=== PATIENT | female | born 1995 | race Hispanic/Latino ===

== ENCOUNTER 2021-02-15 18:05 | Emergency (ER) | payer SELFPAY ==
[2021-02-15] MEDS ORDERED: KETOROLAC TROMETHAMINE 15MG/ML ONE (18:23)
[2021-02-15 19:20] LABS: BASOPHILS % (AUTO) 0.4 % (0.0-5.0); EOSINOPHILS % (AUTO) 0.2 % (0.0-8.0); HEMATOCRIT 42.5 % (36-48); LYMPHOCYTES % (AUTO) 21.3 % (21.0-51.0); MEAN CORPUSCULAR HEMOGLOBIN 29.6 pg (27.0-33.0); MEAN CORPUSCULAR HGB CONC 33.2 g/dL (32.0-36.0); MEAN CORPUSCULAR VOLUME 89.3 fL (79-99); NEUTROPHILS % (AUTO) 71.7 % (40.0-77.0); PLATELET COUNT (AUTO) 280 K/uL (130-400); RED BLOOD CELL COUNT(AUTO) 4.76 MIL/uL (4.00-5.50); RED CELL DISTRIBUTION WIDTH 12.2 % (11.0-15.5); WHITE BLOOD COUNT (AUTO) 11.1 K/uL (4.8-10.8)
[2021-02-15 19:35] LABS: CREATININE 0.8 mg/dL (0.5-1.5); POTASSIUM 3.6 mmol/L (3.5-5.1)
[2021-02-15 19:41] LABS: ALBUMIN 3.4 g/dL (3.5-5.0); BILIRUBIN,TOTAL 0.3 mg/dL (0.2-1.0); CRP QUANTITATIVE 38.9 mg/L (0.00-9.0); TOTAL PROTEIN, SERUM 8.8 g/dL (6.0-8.3)
[2021-02-15 20:33] LABS: ERYTHROCYTE SEDIMENTATION RATE 37 MM/HR (0-20)
[2021-02-15] MEDS ORDERED: METHYLPREDNISOLONE SOD SUCC 125MG/2ML VIAL ONE (20:42)
== END 2021-02-15 21:49 | disposition home or self-care (01) ==
LOC: EDH 18:05
DX: M79.18 Myalgia, other site (principal); E66.01 Morbid (severe) obesity due to excess calories; M79.641 Pain in right hand; M79.642 Pain in left hand; M25.531 Pain in right wrist; M25.562 Pain in left knee; Z68.42 Body mass index [BMI] 45.0-49.9, adult
CPT/HCPCS: 36415; 73110 ×2; 73562; 80053; 85025; 85651; 86140; 96372 ×2; 99284; J1885; J2930

== ENCOUNTER 2021-10-01 22:02 | Emergency (ER) | payer OTHER ==
[~2021-10-01] VITALS: Ht 157.5 cm; Wt 140.6 kg
[2021-10-01 23:42] LABS: APPEARANCE,URINE Clear (CLEAR); BILIRUBIN,URINE Negative (NEGATIVE); COLOR,URINE Yellow (YELLOW); GLUCOSE, URINE (UA) >=1000 mg/dL (NEGATIVE); KETONES,URINE Negative (NEGATIVE); LEUKOCYTE ESTERASE ,URINE Trace (NEGATIVE); NITRATE,URINE Negative (NEGATIVE); OCCULT BLOOD,URINE Large (NEGATIVE); PROTEIN,URINE Negative (NEGATIVE)
[2021-10-01 23:43] LABS: HCG,QUAL RESULT NEGATIVE (NEGATIVE)
[2021-10-01 23:51] LABS: BACTERIA,URINE Few /HPF (None Seen); WBC,URINE 0-1 /HPF (0-1)
[2021-10-02 01:24] LABS: BASOPHILS % (AUTO) 0.5 % (0.0-5.0); EOSINOPHILS % (AUTO) 1.2 % (0.0-8.0); HEMATOCRIT 43.4 % (36-48); MEAN CORPUSCULAR HEMOGLOBIN 30.5 pg (27.0-33.0); MEAN CORPUSCULAR HGB CONC 33.9 g/dL (32.0-36.0); MONOCYTES % (AUTO) 6.6 % (3.0-13.0); NEUTROPHILS % (AUTO) 57.5 % (40.0-77.0); PLATELET COUNT (AUTO) 202 K/uL (130-400); RED BLOOD CELL COUNT(AUTO) 4.82 MIL/uL (4.00-5.50); RED CELL DISTRIBUTION WIDTH 11.9 % (11.0-15.5); WHITE BLOOD COUNT (AUTO) 9.2 K/uL (4.8-10.8)
[2021-10-02 02:02] LABS: CREATININE 0.7 mg/dL (0.5-1.5); POTASSIUM 4.6 mmol/L (3.5-5.1)
[2021-10-02 02:09] LABS: ALBUMIN 3.3 g/dL (3.5-5.0); BILIRUBIN,TOTAL 0.4 mg/dL (0.2-1.0); TOTAL PROTEIN, SERUM 7.8 g/dL (6.0-8.3)
[2021-10-02 02:20] VITALS: BP 139/84
[2021-10-02] MEDS ORDERED: CIPR-278 PO (03:22)
[2021-10-02] MEDS ORDERED: IBUP-2070 PO (03:22)
== END 2021-10-02 03:59 | disposition home or self-care (01) ==
LOC: EDH 22:02
DX: M54.50 Low back pain, unspecified (principal); R31.9 Hematuria, unspecified; R73.9 Hyperglycemia, unspecified; K76.0 Fatty (change of) liver, not elsewhere classified; R03.0 Elevated blood-pressure reading, without diagnosis of hypertension
CPT/HCPCS: 36415; 74176; 80053; 81001; 81025; 85025

== ENCOUNTER 2022-05-10 22:26 | Emergency (ER) | payer OTHER ==
[~2022-05-10] VITALS: Ht 157.5 cm; Wt 141.5 kg
[~2022-05-10 22:26] MED LIST: CIPR-278 PO; IBUP-2070 PO
[2022-05-10 23:40] VITALS: BP 128/84
[2022-05-11] MEDS ORDERED: DIPH50 PO (00:23)
== END 2022-05-11 00:51 | disposition home or self-care (01) ==
LOC: EDH 22:26
DX: T78.3XXA Angioneurotic edema, initial encounter (principal); I10 Essential (primary) hypertension; Z79.899 Other long term (current) drug therapy
CPT/HCPCS: 99282

== ENCOUNTER 2023-05-03 20:40 | Emergency (ER) | payer BC, OTHER ==
[~2023-05-03] VITALS: Ht 157.5 cm; Wt 136.8 kg
[~2023-05-03 20:40] MED LIST changes: +DIPH50 PO
[2023-05-03 20:43] VITALS: BP 121/84
[2023-05-03 21:14] LABS: APPEARANCE,URINE CLOUDY (CLEAR); BILIRUBIN,URINE NEGATIVE (NEGATIVE); COLOR,URINE LIGHT-YELLOW (YELLOW); GLUCOSE, URINE (UA) NEGATIVE (NEGATIVE); KETONES,URINE NEGATIVE (NEGATIVE); LEUKOCYTE ESTERASE ,URINE 500 Leu/uL (NEGATIVE); NITRATE,URINE NEGATIVE (NEGATIVE); OCCULT BLOOD,URINE SMALL (NEGATIVE); PH,URINE 6.5 (5.0-8.0); PROTEIN,URINE 10 mg/dL (NEGATIVE); UROBILINOGEN,URINE 0.2 mg/dL (0.2-1.0)
[2023-05-03 21:23] LABS: BACTERIA,URINE FEW /HPF (None Seen); MUCUS,URINE RARE LPF (None Seen); SQUAMOUS EPITHELIAL CELL,UR FEW /HPF (0-2); WBC,URINE TNTC /HPF (0-1); YEAST,URINE BUDDING FEW /HPF (None Seen)
[2023-05-03] MEDS ORDERED: PHENAZOPYRIDINE HCL 200 MG TABLET PO ONE (21:30)
[2023-05-03] MEDS ORDERED: CEPHALEXIN 500 MG CAPSULE PO ONE (21:30)
[2023-05-03] MEDS ORDERED: HYDROCODONE/ACETAMINOPHEN 5/325 MG TAB PO ONE (21:30)
[2023-05-03] MEDS ORDERED: PHEN-847 PO (22:55)
[2023-05-03] MEDS ORDERED: CEPH500C2 PO (22:55)
[2023-05-03] MEDS ORDERED: ACET-66 PO (22:55)
== END 2023-05-03 23:08 | disposition home or self-care (01) ==
LOC: EDH 20:40
DX: N39.0 Urinary tract infection, site not specified (principal); M54.50 Low back pain, unspecified; Z88.6 Allergy status to analgesic agent
CPT/HCPCS: 74176; 81001; 81025; 87077; 87088; 87186